=== PATIENT | male | born 1965 ===

== ENCOUNTER 2019-07-02 22:48 | Outpatient (REF) | payer OTHER, SELFPAY ==
[2019-07-02 23:05] LABS: Abs Immature Grans 0.02 k/cumm (0.0-0.09); Absolute Basophil Count 0.04 k/cumm (0.0-0.2); Absolute Monocyte Count 0.59 k/cumm (0.11-0.7); Absolute Neutrophil Count 3.04 k/cumm (1.2-6.7); Basophils % 0.7; Eosinophils % 3.5; HCT 46.8 % (40.0-50.0); HGB 15.9 g/dL (13.5-17.5); Immature Grans % 0.3; Lymphocytes % 32.8; Mean Corpuscular Hemoglobin 31.2 pg (27.0-33.0); Mean Corpuscular Volume 91.9 fL (80-95); Mean Platelet Volume 10.9 fL (8.0-11.0); Monocytes % 10.2; Neutrophils % 52.5; Platelet Count 191 x1000/uL (130-400); RBC 5.09 m/cumm (4.50-6.00); RBC Distribution Width 12.9 % (11.8-14.1); White Blood Cell Count 5.79 k/cumm (4.4-10.8)
[2019-07-02 23:27] LABS: ALT 39 U/L (16-63); AST 26 U/L (15-37); Albumin 3.8 g/dL (3.4-5.0); Alkaline Phosphatase 69 U/L (46-116); Anion Gap 9.3 mmol/L (3-11); BUN 14 mg/dL (7-18); Bilirubin, Total 0.3 mg/dL (0.2-1.0); CO2 26.7 mmol/L (21.0-32.0); CREATININE 1.05 mg/dL (0.70-1.30); Calcium 9.3 mg/dL (8.5-10.1); Calculated LDL 137 mg/dL; Chloride 107 mmol/L (98-107); Cholesterol 199 mg/dL (<200); Glucose 95 mg/dL (74-106); HDL Cholesterol 31 mg/dL (40-60); Potassium 4.6 mmol/L (3.5-5.1); Sodium 143 mmol/L (136-145); Total Protein 7.5 g/dL (6.4-8.2); Triglyceride 155 mg/dL (<150)
== END 2019-07-02 23:08 ==
LOC: NCHCN 22:48
PROVIDERS: PCP Family Medicine; Visit Provider Family Medicine
DX: R03.0 Elevated blood-pressure reading, without diagnosis of hypertension (principal); M25.562 Pain in left knee; Z87.891 Personal history of nicotine dependence; I10 Essential (primary) hypertension; Z13.220 Encounter for screening for lipoid disorders
CPT/HCPCS: 80053; 80061; 85025

== ENCOUNTER 2019-08-06 11:55 | Outpatient (REF) | payer OTHER, SELFPAY ==
[2019-08-06 21:49] LABS: BUN 11 mg/dL (7-18); CREATININE 1.03 mg/dL (0.70-1.30)
== END 2019-08-06 12:15 ==
LOC: NCHCN 11:55
PROVIDERS: PCP Family Medicine; Visit Provider Nurse Practitioner Community Health
DX: I71.2 Thoracic aortic aneurysm, without rupture (principal)
CPT/HCPCS: 84520; 82565

== ENCOUNTER 2020-02-18 08:10 | Outpatient (REF) | payer OTHER, SELFPAY ==
[2020-02-18 21:19] LABS: Anion Gap 9.3 mmol/L (3-11); BUN 10 mg/dL (7-18); CO2 26.7 mmol/L (21.0-32.0); CREATININE 0.97 mg/dL (0.70-1.30); Calcium 8.6 mg/dL (8.5-10.1); Chloride 108 mmol/L (98-107); Cholesterol 166 mg/dL (<200); Glucose 111 mg/dL (74-106); HDL Cholesterol 24 mg/dL (40-60); Potassium 4.2 mmol/L (3.5-5.1); Sodium 144 mmol/L (136-145); Triglyceride 426 mg/dL (<150)
[2020-02-18 21:41] LABS: LDL CHOLESTEROL 101 mg/dL (<100)
== END 2020-02-18 08:30 ==
LOC: NCHCN 08:10
PROVIDERS: PCP Family Medicine; Visit Provider Nurse Practitioner Community Health
DX: R03.0 Elevated blood-pressure reading, without diagnosis of hypertension (principal); Z13.220 Encounter for screening for lipoid disorders
CPT/HCPCS: 80048; 80061; 83721

== ENCOUNTER 2020-08-25 22:11 | Outpatient (REF) | payer OTHER, SELFPAY ==
[2020-08-25 13:55] LABS: Calculated LDL 101 mg/dL (<100); Cholesterol 184 mg/dL (<200); HDL Cholesterol 30 mg/dL (40-60); Triglyceride 266 mg/dL (<150)
== END 2020-08-25 22:12 | disposition home or self-care (01) ==
LOC: NCHCN 22:11
PROVIDERS: PCP Family Medicine; Visit Provider Nurse Practitioner Community Health
DX: E78.1 Pure hyperglyceridemia (principal)
CPT/HCPCS: 80061

== ENCOUNTER 2022-02-08 17:14 | Outpatient (REF) | payer OTHER, SELFPAY ==
[2022-02-08 15:55] LABS: ALT 31 U/L (16-63); AST 19 U/L (15-37); Albumin 3.9 g/dL (3.4-5.0); Alkaline Phosphatase 65 U/L (46-116); BUN 18 mg/dL (7-18); Bilirubin, Total 0.4 mg/dL (0.2-1.0); CREATININE 1.1 mg/dL (0.70-1.30); Calcium 8.6 mg/dL (8.5-10.1); Calculated LDL 115 mg/dL (<100); Chloride 109 mmol/L (98-107); Cholesterol 186 mg/dL (<200); Glucose 100 mg/dL (74-106); HDL Cholesterol 33 mg/dL (40-60); Potassium 4.8 mmol/L (3.5-5.1); Sodium 142 mmol/L (136-145); Total Protein 7.9 g/dL (6.4-8.2); Triglyceride 192 mg/dL (<150)
[2022-02-08 15:58] LABS: Hemoglobin A1C 5.6 % (<5.7)
== END 2022-02-08 17:15 | disposition home or self-care (01) ==
LOC: NCHCN 17:14
PROVIDERS: PCP Family Medicine; Visit Provider Family Medicine
DX: I10 Essential (primary) hypertension (principal); E78.5 Hyperlipidemia, unspecified; Z13.1 Encounter for screening for diabetes mellitus
CPT/HCPCS: 80053; 80061; 83036

== ENCOUNTER 2023-09-19 13:28 | Outpatient (REF) | payer BC, SELFPAY ==
[2023-09-19 14:48] LABS: HCT 49.2 % (40.0-50.0); HGB 16.4 g/dL (13.5-17.5); MCH 31.8 pg (27.0-33.0); MCHC 33.3 % (32.0-36.0); MCV 95 fL (80-95); Platelet Count 176 10^3/uL (130-400); RBC 5.16 10^6/uL (4.36-5.78); RDW 12.3 % (11.8-14.1); RDW-SD 43.6 fL
[2023-09-19 15:34] LABS: ALT 16 U/L (16-63); AST 18 U/L (15-37); Albumin 4.1 g/dL (3.4-5.0); Alkaline Phosphatase 45 U/L (46-116); Anion Gap 10.8 mmol/L (3-11); BUN 20 mg/dL (7-18); Bilirubin, Total 0.6 mg/dL (0.2-1.0); CO2 27.2 mmol/L (21.0-32.0); CREATININE 1.2 mg/dL (0.70-1.30); Calcium 9.5 mg/dL (8.5-10.1); Calculated LDL 134 mg/dL (<100); Chloride 106 mmol/L (98-107); Cholesterol 195 mg/dL (<200); Estimated GFR 69.66 (mL/min/1.73m2); Glucose 83 mg/dL (74-106); HDL Cholesterol 40 mg/dL (40-60); Potassium 4.2 mmol/L (3.5-5.1); Sodium 144 mmol/L (136-145); Total Protein 7.6 g/dL (6.4-8.2); Triglyceride 105 mg/dL (<150)
[2023-09-19 23:33] LABS: HIV-1/2 Ag & Ab Screen Negative (Negative)
[2023-09-19 23:35] LABS: Hepatitis C Ab w Rflx HCV PCR Negative (Negative)
== END 2023-09-19 13:29 | disposition home or self-care (01) ==
LOC: NCHCN 13:28
PROVIDERS: PCP Family Medicine; Visit Provider Nurse Practitioner Family
DX: Z13.220 Encounter for screening for lipoid disorders (principal); Z13.1 Encounter for screening for diabetes mellitus; Z11.3 Encounter for screening for infections with a predominantly sexual mode of transmission
CPT/HCPCS: 80053; 80061; 85027; 86803; 87389